=== PATIENT | male | born 1965 | race Caucasian/White ===

== ENCOUNTER 2020-06-05 17:51 | Emergency (ER) | payer BC ==
[~2020-06-05] VITALS: Ht 182.8 cm; Wt 135.2 kg
[~2020-06-05 17:51] MED LIST: AMOXICILLIN500 M2 PO; NAPROXEN250 MG PO; PRILOSEC20 M1 PO; TRAMADOL HCL50 MG PO; VICODIN 5/500 505 MG PO
[2020-06-05] MEDS ORDERED: MEDROL DOSEPAK4 MG PO (20:34)
== END 2020-06-05 20:40 | disposition home or self-care (01) ==
LOC: ED 17:51
DX: M54.16 Radiculopathy, lumbar region (principal); I10 Essential (primary) hypertension; K21.9 Gastro-esophageal reflux disease without esophagitis; Z79.899 Other long term (current) drug therapy; Z98.890 Other specified postprocedural states; Z90.49 Acquired absence of other specified parts of digestive tract